=== PATIENT | male | born 1990 | race Caucasian/White ===

== ENCOUNTER 2017-01-08 00:05 | Emergency (ER) | payer BC ==
[2017-01-08] MEDS ORDERED: Ondansetron 4 MG/2 ML SDV ONE (00:06)
[2017-01-08] MEDS ORDERED: Ondansetron 4 MG/2 ML SDV IVPUSH ONE (00:07)
[2017-01-08] MEDS ORDERED: Pantoprazole 40 MG Vial IVPUSH ONE (00:07)
[2017-01-08] MEDS ORDERED: Sodium Chloride 0.9% 1,000 ML IV ONE ×2 (00:07→00:25)
--- NOTE | 2017-01-08 00:11 | EDM.PDOC ---
ED HPI GENERAL MEDICAL PROBLEM - General Chief Complaint: Drug or Alcohol Abuse Stated Complaint: UNK Time Seen by Provider: 01/08/17 00:09 Source of Information: Reports: Patient - History of Present Illness INITIAL COMMENTS - FREE TEXT/NARRATIVE: HISTORY AND PHYSICAL: History of present illness: [] he presents after ingestion of unknown quantity of Wellbutrin, is also drank a bottle of [place] unknown size, and vodka 4 Days prior roommate said cough and had to hang himself in the bathroom of their apartment, he was not seen by any medical provider after this episode Seems recently he and his girlfriend have ended their relationship Patient has intractable vomiting at this time above history is provided via EMS and police officers Review of systems: As per history of present illness and below otherwise all systems reviewed and negative. Past medical history: As per history of present illness and as reviewed below otherwise noncontributory. Surgical history: As per history of present illness and as reviewed below otherwise noncontributory. Social history: No reported history of drug or alcohol abuse. Family history: As per history of present illness and as reviewed below otherwise noncontributory. Physical exam: HEENT: Atraumatic, normocephalic, pupils reactive, negative for conjunctival pallor or scleral icterus, mucous membranes moist, throat clear, neck supple, nontender, trachea midline. Lungs: Clear to auscultation, breath sounds equal bilaterally, chest nontender. Heart: S1S2, regular, negative for clicks, rubs, or JVD. Abdomen: Soft, nondistended, nontender. Negative for masses or hepatosplenomegaly. Negative for costovertebral tenderness. Pelvis: Stable nontender. Genitourinary: Deferred. Rectal: Deferred. Extremities: Atraumatic, negative for cords or calf pain. Neurovascular unremarkable. Neuro: Awake, alert, oriented. Cranial nerves II through XII unremarkable. Cerebellum unremarkable. Motor and sensory unremarkable throughout. Exam nonfocal. Diagnostics: [] Lab as below EKG Chest one view Therapeutics: [] Normal saline bolus Zofran 8 mg IV Protonix 80 mg IV Valium 5 mg IV Patient intubated the to prolonged seizure activity, see anesthesia for no concerning intubation details Poison control contacted they recommend seizure precautions, prior to seizures beginning Patient transferred to [facility] Impression: Seizure Intractable vomiting [] Alcohol intoxication Suicidal ideation Intubation Definitive disposition and diagnosis as appropriate pending reevaluation and review of above. - Related Data Allergies Allergy/AdvReac Type Severity Reaction Status Date / Time Unable to Assess Allergy Unverified 01/08/17 00:50 Home Meds: Home Meds . [Unable to Verify Home Med List] 01/08/17 [History] ED ROS GENERAL - Review of Systems Review Of Systems: ROS reveals no pertinent complaints other than HPI. ED EXAM, GENERAL - Physical Exam Exam: See Below Course - Vital Signs Last Recorded V/S: Last Vital Signs Temp 36.8 C 01/08/17 00:05 Pulse 120 H 01/08/17 00:05 Resp 22 H 01/08/17 00:05 BP 136/91 H 01/08/17 00:05 Pulse Ox 95 01/08/17 00:05 - Orders/Labs/Meds Orders: Active Orders 24 hr Category Date Time Status EKG Documentation Completion [RC] STAT Care 01/08/17 00:07 Active Chest 1V Frontal [CR] Stat Exams 01/08/17 00:07 Ordered DRUG SCREEN, URINE [URCHEM] Stat Lab 01/08/17 00:08 Uncollected UA W/MICROSCOPIC [URIN] Stat Lab 01/08/17 01:00 Received Sodium Chloride 0.9% [Normal Saline] 1,000 ml Med 01/08/17 00:25 Active IV .Bolus Medication Orders Sodium Chloride (Normal Saline) 1,000 mls @ 999 mls/hr IV .Bolus ONE Stop: 01/08/17 01:25 Last Admin: 01/08/17 00:10 Dose: 999 mls/hr Labs: Laboratory Tests 01/08/17 01/08/17 01/08/17 Range/Units 00:08 00:08 00:08 WBC 9.82 (4.0-11.0) K/uL RBC 5.66 (4.50-5.90) M/uL Hgb 17.1 H (13.0-17.0) g/dL Hct 48.6 (38.0-50.0) % MCV 85.9 (80.0-98.0) fL MCH 30.2 (27.0-32.0) pg MCHC 35.2 (31.0-37.0) g/dL RDW Std Deviation 42.5 (28.0-62.0) fl RDW Coeff of Evette 14 (11.0-15.0) % Plt Count 383 (150-400) K/uL MPV 10.10 (7.40-12.00) fL Neut % (Auto) 45.0 L (48.0-80.0) % Lymph % (Auto) 44.3 H (16.0-40.0) % [place] % (Auto) 8.5 (0.0-15.0) % Eos % (Auto) 1.9 (0.0-7.0) % Baso % (Auto) 0.3 (0.0-1.5) % Neut # (Auto) 4.4 (1.4-5.7) K/uL Lymph # (Auto) 4.4 H (0.6-2.4) K/uL [place] # (Auto) 0.8 (0.0-0.8) K/uL Eos # (Auto) 0.2 (0.0-0.7) K/uL Baso # (Auto) 0.0 (0.0-0.1) K/uL Nucleated RBC % 0.0 /100WBC Nucleated RBCs # 0 K/uL Sodium 145 (136-146) mmol/L Potassium 4.4 (3.5-5.1) mmol/L Chloride 111 H (98-110) mmol/L Carbon Dioxide 17 L (21-31) mmol/L BUN 11 (6.0-23.0) mg/dL Creatinine 0.8 (0.6-1.5) mg/dL Est Cr Clr Drug Dosing TNP Estimated GFR (MDRD) > 60.0 ml/min Glucose 123 H (60-110) mg/dL Calcium 9.0 (8.8-10.8) mg/dL Total Bilirubin 0.3 (0.1-1.5) mg/dL AST 29 (5-40) IU/L ALT 33 (8-54) IU/L Alkaline Phosphatase 132 (40-150) Troponin I < 0.10 (0.0-0.29) NG/ML Total Protein 7.8 (6.0-8.0) g/dL Albumin 4.7 (3.5-5.0) g/dL Globulin 3.1 (2.0-3.5) g/dL Albumin/Globulin Ratio 1.5 (1.3-2.8) Amylase 67 (10-90) U/L Lipase 21 (7-80) U/L TSH 3rd Generation 1.41 (0.47-5.0) uIU/mL Salicylates < 5.0 (0-20) mg/dL Acetaminophen < 3.0 ug/mL Ethyl Alcohol 291.7 mg/dL Meds: Medications Generic Name Dose Route Start Last Admin Trade Name Freq PRN Reason Stop Dose Admin Sodium Chloride 1,000 mls @ 999 mls/hr 01/08/17 00:25 01/08/17 00:10 Normal Saline IV 01/08/17 01:25 999 mls/hr .Bolus ONE Administration Discontinued Medications Generic Name Dose Route Start Last Admin Trade Name Freq PRN Reason Stop Dose Admin Diazepam Confirm 01/08/17 00:38 01/08/17 00:40 Valium Administered 01/08/17 00:39 5 mg Dose Administration 10 mg .ROUTE .STK-MED ONE Diazepam 5 mg 01/08/17 00:50 Valium IVPUSH 01/08/17 00:51 ONETIME ONE Fentanyl Confirm 01/08/17 00:56 Sublimaze Administered 01/08/17 00:57 Dose 100 mcg .ROUTE .STK-MED ONE Sodium Chloride 1,000 mls @ 999 mls/hr 01/08/17 00:07 01/08/17 00:10 Normal Saline IV 01/08/17 01:07 999 mls/hr STAT ONE Administration Propofol Confirm 01/08/17 00:54 Diprivan 50 Ml Administered 01/08/17 00:55 Dose 50 mls @ as directed .ROUTE .STK-MED ONE Ondansetron HCl 8 mg 01/08/17 00:07 01/08/17 00:05 Zofran IVPUSH 01/08/17 00:08 8 mg ONETIME ONE Administration Pantoprazole Sodium 80 mg 01/08/17 00:07 01/08/17 00:15 Protonix Iv IVPUSH 01/08/17 00:08 80 mg .BOLUS ONE Administration Propofol Confirm 01/08/17 00:54 Diprivan 20 Ml Administered 01/08/17 00:55 Dose 200 mg .ROUTE .STK-MED ONE Departure - Departure Time of Disposition: 01:12 Disposition: Home, Self-Care 01 Condition: good Clinical Impression: Suicidal ideation, Suicide attempt by drug ingestion, Alcohol intoxication - Discharge Information Forms: ED Department Discharge - My Orders Last 24 Hours: My Active Orders 01/08/17 00:07 EKG Documentation Completion [RC] STAT Chest 1V Frontal [CR] Stat 01/08/17 00:08 DRUG SCREEN, URINE [URCHEM] Stat 01/08/17 00:25 Sodium Chloride 0.9% [Normal Saline] 1,000 ml IV .Bolus 01/08/17 01:00 UA W/MICROSCOPIC [URIN] Stat - Assessment/Plan Last 24 Hours: My Active Orders 01/08/17 00:07 EKG Documentation Completion [RC] STAT Chest 1V Frontal [CR] Stat 01/08/17 00:08 DRUG SCREEN, URINE [URCHEM] Stat 01/08/17 00:25 Sodium Chloride 0.9% [Normal Saline] 1,000 ml IV .Bolus 01/08/17 01:00 UA W/MICROSCOPIC [URIN] Stat
[2017-01-08 00:43] LABS: CHLORIDE,CL 111 mmol/L (98-110); SODIUM,NA 145 mmol/L (136-146)
[2017-01-08 00:48] LABS: ACETAMINOPHEN < 3.0 ug/mL
[2017-01-08] MEDS ORDERED: Propofol 200 MG/20 ML SDV ONE (00:54)
[2017-01-08] MEDS ORDERED: fentaNYL 100 MCG/2 ML SDV ONE (00:56)
--- NOTE | 2017-01-08 01:20 | PCM.SN ---
- Free Text/Narrative Note: called for Intubation- possible overdose, ETOH intoxication, pt nonverbal and seizure activity, No medical history obtained- no family or friends present. Patient nonverbal. 0057 pre-O2 with NRB 100%O2. Smooth RSI Propofol 200mg IV push followed by Succ 120 mg IV push. Atraumatic intubation, full view of Vocal cords 8cm ET tube placed without difficulty, +ETCO2, BBSE, VSS. ET tube secured by RT. Eyes taped. OG placed without difficulty. 0101 Fentanyl 100 mcg IV and Rocuronium 30 mg IV given. Flight team here and assumed care of patient.
[2017-01-08 04:55] VITALS: BP 142/95
[2017-01-08] MEDS ORDERED: Etomidate 2 MG/ML 20 ML SDV IVPUSH ONE (10:09)
[2017-01-08] MEDS ORDERED: Succinylcholine 200 MG/10 ML MDV IV ONE (10:09)
--- NOTE | 2017-01-09 13:41 | CR ---
EXAM DATE: 01/08/17 PATIENT'S AGE: 26 Patient: SIDDHARTHA MARY Facility: [place], [place] Site . Site : 1990 Study: XRay Chest -01/08/2017 1:15:46 AM Ordering Physician: Doctor Leon Final Report: INDICATIONS: Post intubation. TECHNIQUE: Chest 1 view. COMPARISON: None FINDINGS: Endotracheal tube terminates 5.4 cm above the addis. Enteric tube extends into the stomach. No pneumothorax or pleural effusion. Mild left basilar opacity. Lungs are otherwise clear. Cardiac and mediastinal contours are within normal limits. Upper abdomen and osseous structures show no acute abnormality. IMPRESSION: Endotracheal tube terminates 5.4 cm above the addis. Left basilar atelectasis or airspace disease. Correlation for possible aspiration recommended. Dictated by Oumar Summers MD @ 01/08/2017 1:35:54 AM Dictated by: Oumar Summers MD @ 01/08/2017 01:36:06 (Electronic Signature) Report Signed by Proxy. EDDIE
== END 2017-01-08 01:31 ==
LOC: MW.ED 00:05
DX: T43.292A Poisoning by other antidepressants, intentional self-harm, initial encounter (principal); R11.10 Vomiting, unspecified; F10.129 Alcohol abuse with intoxication, unspecified; R45.851 Suicidal ideations; Y90.8 Blood alcohol level of 240 mg/100 ml or more
CPT/HCPCS: 31500; 36600; 71010; 80053; 80305; 81001; 82150; 82803; 83690; 84443; 84484; 85025; 93005; 96361; 96374; 96375; 99291; C9113; G0480; J0330; J2405; J3010; J3360; J7040; 99285; J2704